=== PATIENT | female | born 1965 | race Caucasian/White ===

== ENCOUNTER 2018-05-14 11:40 | Outpatient (CLI) | payer OTHER ==
[2018-05-14] MEDS ORDERED: GADOPENTETATE DIMEGLUMINE 15 ML VIAL IV ONE (12:33)
== END 2018-05-14 19:01 | disposition home or self-care (01) ==
LOC: SMI 11:40
PROVIDERS: ATTEND Family Medicine
DX: R20.0 Anesthesia of skin (principal); Z86.73 Personal history of transient ischemic attack (TIA), and cerebral infarction without residual deficits
CPT/HCPCS: 70553; A9579